=== PATIENT | male | born 1965 | race Caucasian/White ===

== ENCOUNTER 2018-12-27 14:01 | Emergency (ER) | payer OTHER ==
--- NOTE | 2018-12-27 14:11 | PDOC ---
Rapid Medical Evaluation Time Seen by Provider: 12/27/18 14:09 Medical Evaluation: 12/27/18 14:09 I have performed a brief in-person evaluation of this patient. The patient presents with a chief complaint of: "My legs won't stop shaking." Pertinent physical exam findings: Right leg remains still for periods. Left leg with continuous motion. I have ordered the following: nothing The patient will proceed to the ED for further evaluation. Discharge Disposition - Diagnosis Abnormal leg movement - Referrals - Patient Instructions - Post Discharge Activity
[2018-12-27 14:13] VITALS: BMI 26.4
--- NOTE | 2018-12-27 15:11 | PDOC ---
History of Present Illness - General Chief Complaint: Weakness Stated Complaint: RESTLESS LEGS Time Seen by Provider: 12/27/18 14:09 - History of Present Illness Initial Comments: Mr. Maciel is a 53M with PMH of depression presenting today with restless legs. Reports that he cannot stop his legs from shaking and that he feels the need to pace. Denies leg pain, denies leg weakness. Denies trauma, fall, headache, LOC. Denies travel or sick contacts. Denies suicidal or homicidal ideation. He is on disability for his depression. His mom in the exam room states that he is going through a divorce, but he does not want to elaborate further. States that there is no other stressors in his life. He has an appt on Thursday with an intake counselor for a therapist. He has tried a number of medications for depression, none of which have worked. Last regimen was apaxel and abilify. Denies alcohol use, denies drug use. Past History - Past Medical History Allergies/Adverse Reactions: Allergies Allergy/AdvReac Type Severity Reaction Status Date / Time No Known Allergies Allergy Verified 12/27/18 14:12 Home Medications: Ambulatory Orders NK [No Known Home Medication] 12/27/18 CVA: No COPD: No - Immunization History Immunization Up to Date: No - Suicide/Smoking/Psychosocial Hx Smoking History: Never smoked Review of Systems - Review of Systems Comments:: GENERAL/CONSTITUTIONAL: No fever or chills. No weakness._ HEAD, EYES, EARS, NOSE AND THROAT: No change in vision. No ear pain or discharge. No sore throat._ CARDIOVASCULAR: No chest pain or shortness of breath_ RESPIRATORY: Denies cough, hemoptysis_ GASTROINTESTINAL: No nausea, vomiting, diarrhea or constipation._ GENITOURINARY: No dysuria, frequency, or change in urination._ MUSCULOSKELETAL: No joint or muscle swelling or pain. No neck or back pain._ SKIN: No rash_ NEUROLOGIC: No headache, vertigo, loss of consciousness, or change in strength/ sensation. Reports restless legs and pacing around the room. ENDOCRINE: No increased thirst. No abnormal weight change_ HEMATOLOGIC/LYMPHATIC: No anemia, easy bleeding, or history of blood clots._ ALLERGIC/IMMUNOLOGIC: No hives or skin allergy._ *Physical Exam - Vital Signs Last Vital Signs Temp Pulse Resp BP Pulse Ox 98.4 F 98 H 18 106/70 100 12/27/18 14:09 12/27/18 14:09 12/27/18 14:09 12/27/18 14:09 12/27/18 14:09 - Physical Exam Comments: GENERAL: Awake, alert, and oriented to person/place/time, in no acute distress_ HEAD: No signs of trauma, normocephalic, atraumatic _ EYES: PERRLA, EOMI, sclera anicteric, conjunctiva clear_ ENT: Hearing grossly normal, nares patent, oropharynx clear without exudates. No uvular deviation. Moist mucosa_ NECK: Normal ROM, supple, no lymphadenopathy, JVD, or masses_ LUNGS: No distress, speaks in full sentences, clear to auscultation bilaterally _ HEART: Regular rate and rhythm, normal S1 and S2, no murmurs appreciated, peripheral pulses normal and equal bilaterally._ ABDOMEN: Soft, nontender, normoactive bowel sounds. No guarding, no rebound. No masses_ EXTREMITIES: Normal inspection, Normal range of motion, no edema. No clubbing or cyanosis_ NEUROLOGICAL: Cranial nerves II through XII grossly intact. Normal speech, normal gait, no focal sensorimotor deficits. 5/5 strength and sensation in upper and lower extremities. SKIN: Warm, Dry, normal turgor, no rashes or lesions noted_ ED Treatment Course - LABORATORY CBC & Chemistry Diagram: 12/27/18 16:18 12/27/18 16:18 Medical Decision Making - Medical Decision Making 12/27/18 15:00 53M with hx of depression refractory to medications, presenting with bilateral restless legs and pacing around the room. No SI/HI. Denies stressors but mom in the room interjects that he is going through a divorce. 12/27/18 1600 Plan to draw CBC, CMP, CPK and give 10 mg Valium for anxiety. 12/27/18 18:00 Patient reassessed. Reports that Valium resolved the leg restlessness for around 40 min before it resumed. At bedside, patient continues with leg shaking and pacing around the room. Labs wnl. 12/27/18 21:00 CPK wnl. Discharge home and follow up with PCP and to keep intake psych appointment on Thursday. Likely anxiety related based on history, physical, and lab work. *DC/Admit/Observation/Transfer Diagnosis at time of Disposition: Abnormal leg movement - Discharge Dispostion Disposition: HOME Condition at time of disposition: Stable Decision to Admit order: No - Referrals Referrals: Toyin Dos Santos MD [Primary Care Provider] - - Patient Instructions Additional Instructions: Please follow up with your primary care physician, and please keep your appointment with the psychiatrist/therapist intake office on Thursday. - Post Discharge Activity
[2018-12-27] MEDS ORDERED: diazePAM 5 MG TABLET PO ONE (16:01)
[2018-12-27] MEDS ORDERED: diazePAM 5 MG TABLET ONE (16:06)
[2018-12-27 16:53] LABS: BASO % 0.1 % (0-2.0); EOS % 0.5 % (0-4.5); HEMATOCRIT 42.3 % (35.4-49); HEMOGLOBIN 14.4 GM/dL (11.7-16.9); LYMPH % 23.6 % (8-40); MCHC 34.2 g/dl (32.0-35.9); MEAN CELL VOLUME 90.5 fl (80-96); MEAN PLT VOLUME 8.4 fl (7.5-11.1); MONO % 9.2 % (3.8-10.2); NEUT % 66.6 % (42.8-82.8); PLATELET COUNT 259 K/MM3 (134-434); RBC 4.67 M/mm3 (4.00-5.60); RDW 13.8 % (11.9-15.9); WHITE BLOOD COUNT 7.1 K/mm3 (4.0-10.0)
--- NOTE | 2018-12-27 16:55 | PDOC ---
Documentation entered by Samantha Zhang SCRIBE, acting as scribe for Brittany Harrington MD. Brittany Harrington MD: This documentation has been prepared by the roopaeVicente Adrianna, SCRIBE, under my direction and personally reviewed by me in its entirety. I confirm that the documentation accurately reflects all work, treatment, procedures, and medical decision making performed by me. Attending Attestation - Resident Resident Name: Akin Yousif - HPI HPI: The patient is a 53 year old male, with a significant PMH of depression and anxiety, who presents to the ED for evaluation of LE shaking and restlessness for 5 days. Patient notes he cant stop his legs from shaking, and he feels the urge to constantly pace (cannot sit still). Patients mother at bedside notes he is going through a divorce, and has been on various depression medications ( none of which have helped with his depression). He denies any other significant stressors, and follows up with a therapist for his depression. Denies LE paresthesia, weakness, trauma/injury, headache, chest pain. Denies self harm, ideations to hurt self or others. Allergies: NKA, NKDA Surgical History: None reported Social History: Denies EtOH, tobacco, or illicit drug use PCP; Dr. Dos Santos - Physicial Exam PE: GENERAL: +Anxious appearing. Awake, alert, and fully oriented. HEAD: No signs of trauma EYES: PERRLA, EOMI, sclera anicteric, conjunctiva clear ENT: Auricles normal inspection, hearing grossly normal, nares patent, oropharynx clear without exudates. Moist mucosa NECK: Normal ROM, supple, no lymphadenopathy, JVD, or masses LUNGS: Breath sounds equal, clear to auscultation bilaterally. No wheezes, and no crackles HEART: Regular rate and rhythm, normal S1 and S2, no murmurs, rubs or gallops ABDOMEN: Soft, nontender, normoactive bowel sounds. No guarding, no rebound. No masses EXTREMITIES: Normal range of motion, no edema. No clubbing or cyanosis. No cords, erythema, or tenderness NEUROLOGICAL: Cranial nerves II through XII grossly intact. Normal speech, normal gait SKIN: Warm, Dry, normal turgor, no rashes or lesions noted.
[2018-12-27 17:03] LABS: ALBUMIN 3.9 g/dl (3.4-5.0); BILIRUBIN,TOTAL 0.2 mg/dL (0.2-1); BLOOD UREA NITROGEN 20.2 mg/dL (7-18); CALCIUM 8.6 mg/dL (8.5-10.1); POTASSIUM 4.5 mmol/L (3.5-5.1); TOT PROT 6.7 g/dl (6.4-8.2)
[2018-12-27 18:44] VITALS: BP 118/81; PULSE 84; TEMP 98
== END 2018-12-27 21:25 | disposition home or self-care (01) ==
LOC: JER 14:01
DX: G25.9 Extrapyramidal and movement disorder, unspecified (principal); F32.9 Major depressive disorder, single episode, unspecified
CPT/HCPCS: 36415; 80053; 82550; 85025; 99283-25

== ENCOUNTER 2020-09-11 07:48 | Emergency (ER) | payer OTHER ==
[2020-09-11 07:59] VITALS: BP 115/76; PULSE 109; TEMP 98.2; BMI 32.1
[2020-09-11 08:55] LABS: PH,URINE 5.5 (5.0-8.0); URINE APPEARANCE CLEAR; URINE BILIRUBIN NEGATIVE (NEGATIVE); URINE COLOR YELLOW; URINE GLUCOSE (UA) NEGATIVE (NEGATIVE); URINE KETONE NEGATIVE (NEGATIVE); URINE LEUK ESTERASE NEGATIVE (NEGATIVE); URINE NITRITE NEGATIVE (NEGATIVE); URINE PROTEIN NEGATIVE (NEGATIVE); URINE UROBILINOGEN 0.2 mg/dL (0.2-1.0)
== END 2020-09-11 09:30 | disposition home or self-care (01) ==
LOC: JER 07:48
DX: R35.0 Frequency of micturition (principal)
CPT/HCPCS: 76856-TC; 81003; 87086; 99284-25

== ENCOUNTER → 2021-05-05 | Emergency (ER) | payer OTHER ==
[~2021-05-05] MED LIST: CALCIUM CHLORIDE 1 GM/10 ML *DISP.SYRIN ONE; EPINEPHrine 1:10,000 (P-F SYR) 1 MG/10 ML DISP.SYRIN ONE; MAGNESIUM SULF 50% (8.12 MEQ/2 ML-1 GM VIAL) ONE; SODIUM BICARBONATE 8.4% - 100 ML ONE
[2021-05-05 13:28] VITALS: BP 0/0; TEMP 0; BMI 29.5
== END ==
LOC: JER 12:49
PROC: 04H Lower Arteries, Insertion (ICD-10-PCS; principal; 2021-05-05)
DX: I46.9 Cardiac arrest, cause unspecified (principal)
CPT/HCPCS: 36555; 99284-25